=== PATIENT | male | born 1950 | race Caucasian/White ===

== ENCOUNTER 2017-02-07 14:08 | Inpatient (IN) | payer BC ==
--- NOTE | ~2017-02-07 | CN ---
Consultation Report [facility] [address] [place]. [address] NAME: АННА CASH : 50 STATUS : ADM IN PAT#: [id number] AGE: 66 ADM/REG DATE : 02/07/17 MR#: [id number] REPORT SERV DATE: 02/08/17 DICTATED BY: SANDI FERREIRA DATE: 02/07/17 REPORT STATUS : Draft TRANSCRIBED BY: MODL DATE: 02/07/17 CONSULTATION REPORT DATE OF CONSULTATION: 02/07/2017 REASON FOR CONSULTATION: Diabetes and hypertension management. HISTORY OF PRESENT ILLNESS: This is a very pleasant 66-year-old gentleman with a past medical history of hypertension; hyperlipidemia; and diet-controlled diabetes who presents today complaining of neck pain. He reports that he had an MRI this morning at [facility] and received a call from his primary care provider, Dr. Maxwell, who told him to come to the hospital. The patient reports having neck pain and a "bad crik" that started around January 27. He reports that the pain progressively worsened, and he saw his primary care provider two days ago and was started on oral steroids at that time. He reports feeling much better since starting systemic steroids. He also complains of some occasional, very intermittent dysphagia over the same time period, but reports that it is much improved. He actually denies any complaints at this time other than neck pain, which is much improved over two days ago. Additionally, he notes that he had an accident during training in the [employer] in 1973 that resulted in cervical spine injury causing initial quadriplegia. He reports after very aggressive rehabilitation at [facility] and [place], he regained all function with the exception of some left upper extremity weakness. Additionally, he reports not having to take any medication for diabetes as he monitors his diet very closely. 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 PAST SURGICAL HISTORY: 1. Cholecystectomy. 2. Appendectomy. 3. Right total hip arthroplasty. 4. Neck injury with cervical radiculopathy and hernia repair. ALLERGIES: PENICILLIN, SULFA, AND PHENERGAN. HOME MEDICATIONS: 1. Aspirin 81 mg p.o. daily. 2. Valium 5 mg p.o. x1 dose for MRI. 3. Diphenhydramine 50 mg p.o. at bedtime as needed for sleep. 4. Nyla 180 mg p.o. with supper. 5. Lisinopril 20 mg p.o. daily. 6. Lovastatin 40 mg p.o. with lunch. 7. Multivitamin one tab daily. 8. Prednisone 50 mg p.o. daily started 02/05/2017 x 7 days. Consultation Report [address] [place]. [address] NAME: АННА CASH : 50 STATUS : ADM IN PAT#: [id number] AGE: 66 ADM/REG DATE : 02/07/17 MR#: [id number] REPORT SERV DATE: 02/08/17 DICTATED BY: SANDI FERREIRA DATE: 02/07/17 REPORT STATUS : Draft TRANSCRIBED BY: FRED DATE: 02/07/17 SOCIAL HISTORY: Single. Lives alone. He reports that he does not drive anymore primarily to save money. He denies tobacco use. Very occasional alcohol use, maybe one drink every month or two. No illicit drug use. He is a retired junior mechanical engineer. FAMILY HISTORY: Significant for hypertension, coronary artery disease, diabetes, and CVA. REVIEW OF SYSTEMS: A complete review of systems was obtained and is negative except as noted in past and present history. PHYSICAL EXAMINATION: VITAL SIGNS: Blood pressure 164/74, pulse 65, temperature 98.9, respirations 16, oxygen saturation 96% on room air. GENERAL: Reveals a well-developed, well-nourished, elderly white male, who appears stated age. He is alert and oriented. He is pleasant and cooperative with examination. C-collar in place. HEENT: Head: Normocephalic, atraumatic. Pupils are equal, round, reactive to light. Extraocular muscles intact. Sclerae anicteric. Oropharynx clear with moist mucous membranes. NECK: Unable to assess secondary to cervical collar. RESPIRATORY: Lungs are clear to auscultation bilaterally. Respirations even and nonlabored. Symmetrical chest rise noted. CARDIOVASCULAR: S1 and S2 noted. Regular rate and rhythm. No murmur, rub, or gallop appreciated. ABDOMEN: Slightly distended, but nontender. Normoactive bowel sounds. SKIN: Warm and dry. Good color. EXTREMITIES: No clubbing, cyanosis, or edema. Palpable pedal pulses bilaterally. No calf tenderness. NEUROLOGIC: Alert and oriented x3. Grossly nonfocal. Equal supervisor coke handling and strength bilaterally. Negative pronator drift, and [id number] test was normal. Formal gait not assessed. PSYCH: Appropriate mood and affect. LABORATORY AND DIAGNOSTIC DATA: WBC 10,300, hemoglobin 13.7, hematocrit 39.2, and platelets 287,000. Protime 13.3 and INR 1.0 respectively. Sodium 138, potassium 4.8, chloride 105, CO2 of 27, BUN 26, creatinine 1.19. Glucose 145. LFTs within normal limits. Portable chest x-ray reveals no acute cardiopulmonary process evident radiographically, MRI of cervical spine without contrast revealed disc protrusion at C2 and C3 with canal stenosis, disc extrusion at C3-C4, with focal cervical cord myelomalacia. The affected AP canal diameter is 3 mm. Critical cervical canal stenosis is present. Left paracentral disc protrusion at C5-C6. The affected AP canal diameter is 4 mm. No urinalysis or EKG available. Consultation Report [address] [place]. [address] NAME: АННА CASH : 50 STATUS : ADM IN PAT#: [id number] AGE: 66 ADM/REG DATE : 02/07/17 MR#: [id number] REPORT SERV DATE: 02/08/17 DICTATED BY: SANDI FERREIRA DATE: 02/07/17 REPORT STATUS : Draft TRANSCRIBED BY: FRED DATE: 02/07/17 IMPRESSION: 1. Cervical disc protrusion and extrusion with canal stenosis and acute neck pain. 2. Poorly controlled hypertension. 3. Diabetes mellitus type 2 with hyperglycemia on steroids. 4. Hyperlipidemia. 5. Obesity. 6. Seasonal allergies. PLAN/RECOMMENDATIONS: I will order a.c. and at bedtime blood glucose monitoring as well as checking an A1c. I will cover with sliding scale insulin and adjust as needed while on systemic steroids. I will continue the patient's home antihypertensive as well as adding IV p.r.n. hydralazine. I will check UA and an EKG for baseline. I will defer anticoagulation to primary team. Thank you so much for this consultation. We will follow along with you. RASTA/FRED Sandi Ferreira NP / [id number] CC: DO Elías Lombardo DO
--- NOTE | ~2017-02-07 | HP ---
History And Physical [place] [id number] [facility] [place]. [address] NAME: АННА CASH : 50 STATUS : ADM IN [facility]#: [id number] AGE: 66 ADM/REG DATE : 02/07/17 MR#: [id number] REPORT SERV DATE: 02/08/17 DICTATED BY: TRENT VALLE DATE: 02/08/17 REPORT STATUS : Draft TRANSCRIBED BY: MODCamden DATE: 02/08/17 DATE OF ADMISSION: 02/07/2017 REASON FOR REQUEST: Cervical spine stenosis. HISTORY OF PRESENT ILLNESS: The patient is a 66-year-old gentleman who presented to the emergency department yesterday with increasing neck pain after review of an MRI scan and found to have severe spinal stenosis with spinal cord compression. It was discussed with me by phone and I stated that if the patient would like to be admitted for planned surgery that he could be so, otherwise I would see him at the next available outpatient setting. He chose to be admitted for surgery. The patient has a long history of neck problems dating back approximately 40 years ago when he had a injury and became quadriplegic and had a tracheostomy. He gradually returned all of his motor function over a couple of month history. He has some continued sensory deficits in the bilateral forearms and hands as well as the right foot and ankle and diminished sensation in the left foot and ankle. He denies any worsening problems of myelopathy including worsening balance, dropping objects, and loss of fine motor skills. REVIEW OF SYSTEMS: He denies any chest pain, shortness of breath, or bowel or bladder changes. PAST MEDICAL HISTORY: Includes diabetes, hypertension, obesity, seasonal allergies, and dysphagia. FAMILY HISTORY: Noncontributory. PHYSICAL EXAMINATION: GENERAL: The patient is healthy appearing, in no acute distress. PSYCHIATRIC: Alert and oriented x3. Normal mood and affect. Gait was not tested. VASCULAR: No extremity swelling. SPINE: The patient is in a hard cervical collar. No focal tenderness. NEUROLOGIC: Strength in the upper and lower extremities remains intact with 5/5 motor strength for the deltoids, biceps, triceps, wrist extensors, finger flexors, interossei, hip flexors, hamstrings, quadriceps, tibialis anterior, EHL, gastrocsoleus, and peroneals. He has negative clonus bilaterally. He has positive Martin's bilaterally. IMAGING: I have reviewed the MRI scan of the cervical spine. He does have severe stenosis from C2 down to C6 with spinal cord compression down to approximately 3 mm in diameter with focal myelomalacia present. ASSESSMENT: Severe spinal stenosis with spinal cord compression and myelomalacia. PLAN: I had a long discussion with the patient. We are discussing surgical options. At the end of that discussion, he states that he wanted a second opinion and would like to go to [place]. I will work on arranging for potential hospital to hospital transfer as the [place] staff of neurosurgeons does not come to [facility] and do not have privileges for History And Physical [address] [address] NAME: АННА CASH : 50 STATUS : ADM IN [facility]#: [id number] AGE: 66 ADM/REG DATE : 02/07/17 MR#: [id number] REPORT SERV DATE: 02/08/17 DICTATED BY: TRENT VALLE DATE: 02/08/17 REPORT STATUS : Draft TRANSCRIBED BY: FRED DATE: 02/08/17 patients at this hospital. As a result, based on patient wish, we will work with case management team to have him transferred to [place] for further evaluation. BALA/FRED Trent Valle DO / [id number] CC: DO Elías Lombardo DO
[~2017-02-07 14:08] MED LIST: ALLEGRA180 PO; ASAB PO; CENTRUM TAB1 TAB PO; FISH-EPA1000 MG PO; FLONASE NAS; HEMOCYTE324 MG PO; VITAMIN D31000 UNIT PO
[2017-02-07] MEDS ORDERED: PRIN20 PO (16:29)
[2017-02-07] MEDS ORDERED: PRED50B PO (16:29)
[2017-02-07] MEDS ORDERED: MEVACOR40 MG PO (16:29)
[2017-02-07] MEDS ORDERED: CENTRUM PO (16:30)
[2017-02-07] MEDS ORDERED: ALLEGRA180 PO (16:30)
[2017-02-07] MEDS ORDERED: V5 PO (16:30)
[2017-02-07] MEDS ORDERED: ASAB PO (16:30)
[2017-02-07] MEDS ORDERED: BANOPHEN25 MG PO (16:30)
[2017-02-07 16:35] LABS: BASOPHILS 0.1 %; BASOPHILS ABSOLUTE 0.01 10/3/uL (0.0-0.16); EOSINOPHILS 0 %; HEMATOCRIT 39.2 % (40.0-51.0); HEMOGLOBIN 13.7 g/dL (13.6-17.8); IMMATURE GRANULOCYTES 0.3 %; IMMATURE GRANULOCYTES ABSOLUTE 0.03 10/3/uL (0.0-0.11); LYMPHOCYTES 11.8 %; LYMPHOCYTES ABSOLUTE 1.21 10/3/uL (0.67-4.30); MEAN CORPUS HGB CONC 34.9 g/dL (32.0-36.0); MEAN CORPUSCULAR HEMOGLOB 32.3 pg (26.0-34.0); MEAN CORPUSCULAR VOLUME 92.5 fL (80-100); MEAN PLATELET VOLUME 9.1 fL (9.2-13.0); MONOCYTES 3.3 %; MONOCYTES ABSOLUTE 0.34 10/3/uL (0.21-1.20); NEUTROPHILS 84.5 %; PLATELET COUNT 287 10/3/uL (150-400); RBC DISTRIBUTION WIDTH 13.7 % (12.0-16.0); RED CELL COUNT 4.24 10/6/uL (4.7-6.1)
[2017-02-07 16:36] LABS: ER CBC TAT 0 Hrs 05 Mins; MANUAL DIFF NO %; WHITE BLOOD CELLS 10.3 10/3/uL (4.5-10.5)
[2017-02-07 16:42] LABS: PARTIAL THROMBO TIME 26.6 SEC (22.5-37.2); PROTIME (NOT ORD) 13.3 SEC (12.0-14.5)
[2017-02-07 16:52] LABS: ALKALINE PHOSPHATASE 72 U/L (45-117); CHLORIDE, SERUM 105 MMOL/L (96-112); CO2 (CARBON DIOXIDE) 27 MMOL/L (24-34); CREATININE 1.19 MG/DL (0.70-1.30); GFR AFRICAN AMERICAN 73 ML/MIN (>=60); GFR NON AFRICAN AMERICAN 63 ML/MIN (>=60); GLOBULIN 3.9 G/DL (2.5-4.1); POTASSIUM, SERUM 4.8 MMOL/L (3.5-5.3); SGOT(AST) 26 U/L (5-40); SGPT(ALT) 48 U/L (5-65); SODIUM, SERUM 138 MMOL/L (135-148); TOTAL BILIRUBIN 0.3 MG/DL (0-1.2); TOTAL PROTEIN 7.9 G/DL (6.0-8.5)
[2017-02-07 16:53] LABS: BUN (BLOOD UREA NITROGEN) 26 MG/DL (6-23); GLUCOSE, SERUM 145 MG/DL (60-99)
[2017-02-07 22:59] LABS: B NATRIURETIC PEPTIDE (BNP) 30.9 PG/ML (< 100.0)
[2017-02-07 23:34] LABS: PROCALCITONIN <0.05 ng/mL (<0.5)
[2017-02-08 05:49] LABS: ASCORBIC ACID (UR NOT ORDER) NEG (NEG); BILIRUBIN, URINE NEGATIVE (NEG); KETONE, URINE NEGATIVE (NEG); LEUKOCYTE ESTERASE(NOT OR NEG (NEG); WBC (NOT ORDERED) (RFLEX) < 1 (0-5)
[2017-02-08 07:12] LABS: BASOPHILS 0.1 %; BASOPHILS ABSOLUTE 0.01 10/3/uL (0.0-0.16); EOSINOPHILS 0.6 %; EOSINOPHILS ABSOLUTE 0.05 10/3/uL (0.0-0.53); HEMATOCRIT 37.1 % (40.0-51.0); HEMOGLOBIN 12.5 g/dL (13.6-17.8); IMMATURE GRANULOCYTES 0.4 %; IMMATURE GRANULOCYTES ABSOLUTE 0.03 10/3/uL (0.0-0.11); LYMPHOCYTES 38.8 %; LYMPHOCYTES ABSOLUTE 3.08 10/3/uL (0.67-4.30); MEAN CORPUS HGB CONC 33.7 g/dL (32.0-36.0); MEAN CORPUSCULAR HEMOGLOB 31.7 pg (26.0-34.0); MEAN CORPUSCULAR VOLUME 94.2 fL (80-100); MONOCYTES 9.9 %; MONOCYTES ABSOLUTE 0.79 10/3/uL (0.21-1.20); NEUTROPHILS 50.2 %; NEUTROPHILS ABSOLUTE 3.98 10/3/uL (2.02-8.40); PLATELET COUNT 252 10/3/uL (150-400); RBC DISTRIBUTION WIDTH 13.6 % (12.0-16.0); RED CELL COUNT 3.94 10/6/uL (4.7-6.1); WHITE BLOOD CELLS 7.9 10/3/uL (4.5-10.5)
[2017-02-08 07:20] LABS: MANUAL DIFF NO %
[2017-02-08 07:28] LABS: CHLORIDE, SERUM 105 MMOL/L (96-112); CO2 (CARBON DIOXIDE) 29 MMOL/L (24-34); CREATININE 0.94 MG/DL (0.70-1.30); GFR AFRICAN AMERICAN 98 ML/MIN (>=60); GFR NON AFRICAN AMERICAN 84 ML/MIN (>=60); PHOSPHORUS, SERUM 3.4 MG/DL (2.5-4.5); POTASSIUM, SERUM 4.3 MMOL/L (3.5-5.3); SODIUM, SERUM 140 MMOL/L (135-148)
[2017-02-08 07:29] LABS: BUN (BLOOD UREA NITROGEN) 22 MG/DL (6-23); GLUCOSE, SERUM 98 MG/DL (60-99)
[2017-02-08 08:06] LABS: GLYCOHEMOGLOBIN (HbA1c) 5.9 % (4.7-6.1)
== END 2017-02-08 17:23 | disposition short-term general hospital (02) | DRG 552 ==
LOC: ER 14:08 → 3SO 18:05
PROVIDERS: Nurse Practitioner; Orthopaedic Surgery
DX: M48.02 Spinal stenosis, cervical region (principal); G95.89 Other specified diseases of spinal cord; M50.21 Other cervical disc displacement, high cervical region; R13.10 Dysphagia, unspecified; E11.65 Type 2 diabetes mellitus with hyperglycemia; Z68.34 Body mass index [BMI] 34.0-34.9, adult; E86.9 Volume depletion, unspecified; I10 Essential (primary) hypertension; E78.5 Hyperlipidemia, unspecified; E66.9 Obesity, unspecified; Z79.82 Long term (current) use of aspirin; Z79.899 Other long term (current) drug therapy; Z96.641 Presence of right artificial hip joint; Z88.0 Allergy status to penicillin; Z88.2 Allergy status to sulfonamides; Z88.8 Allergy status to other drugs, medicaments and biological substances
CPT/HCPCS: 36415; 71010; 72141; 80048; 80053; 81001; 82962; 83036; 83735; 83880; 84100; 84145; 85025; 85610; 85730; 86850; 86900; 86901; 93005; 99285; A9270-GY; G0378; J1170; J2405